=== PATIENT | female | born 1970 | race Caucasian/White ===

== ENCOUNTER 2017-10-03 22:52 | Inpatient (IN) | payer OTHER ==
[~2017-10-03] VITALS: Ht 170.2 cm; Wt 117.5 kg
[2017-10-03 23:22] LABS: ABSOLUTE BASOPHIL COUNT 0.1 /CUMM (0.0-0.2); ABSOLUTE EOSINOPHIL COUNT 0.4 /CUMM (0.0-0.7); ABSOLUTE GRANULOCYTE CT 4.1 /CUMM (1.4-6.5); ABSOLUTE LYMPH COUNT 2.7 /CUMM (1.2-3.4); BASOPHIL % 1.2 % (0.0-2.0); GRANULOCYTE % 49.6 % (42.2-75.2); HEMATOCRIT 39.6 % (37-47); MEAN CORPUSCULAR HGB 29.4 PG (27.0-31.0); MEAN CORPUSCULAR VOLUME 86.6 FL (81.0-99.0); MEAN PLATELET VOLUME 8.1 FL (7.4-10.4); PLATELET COUNT 377 /CUMM (130-400); RBC DISTRIBUTION WIDTH 12.9 % (11.5-14.5); RED BLOOD CELL CT 4.57 /CUMM (4.20-5.40); WHITE BLOOD CELL COUNT 8.3 /CUMM (4.8-10.8)
--- NOTE | 2017-10-03 23:56 | ED PSYCHIATRIC COMPLAINT ---
See Addendum History of Present Illness General Chief Complaint: Psychiatric Related Complaint Stated Complaint: +SI Source: patient Exam Limitations: no limitations Vital Signs & Intake/Output Vital Signs & Intake/Output Vital Signs Date Time Temp Pulse Resp B/P B/P Pulse O2 O2 Flow FiO2 Mean Ox Delivery Rate 10/05 0752 97.8 73 129/75 10/04 2227 97.1 84 136/85 10/04 2141 97.6 75 20 118/66 10/04 1910 97.8 84 18 153/73 98 Room Air ED Intake and Output 10/05 0000 10/04 1200 Intake Total Output Total Balance Patient 259 lb Weight Triage Note: PT TO ED FOR +SI THOUGHTS WITH A PLAN OF "OVERDOSING ON MY METOPROLOL" DENIES HI, DENIES ETOH/DRUGS. PMH OF ANXIETY, DEPRESSION AND PTST. SOBBING IN TRIAGE Triage Nurses Notes Reviewed? yes Onset: Abrupt Duration: day(s): Timing: recent history : No Patient currently breastfeeds: No HPI: 10/04/17 1:23 AM 47-year-old female who presents to the emergency department complaining of depression with suicidal ideation. The patient states she's having thoughts of hurting herself. She has a past medical history of depression and suicidal ideation in the past. She denies any alcohol or drug use. (Carlton Obrien DO) Allergies Coded Allergies: banana (Intermediate, RASH 10/04/17) Reconcile Medications Albuterol Sulfate (Proair Hfa) 90 MCG HFA.AER.AD 2 PUF INH Q4-6 PRN PRN SHORTNESS OF BREATH (Reported) Bupropion HCl (Wellbutrin XL) 150 MG TAB.ER.24H 3 TAB PO DAILY MENTAL HEALTH (Reported) Clonazepam (Klonopin) 0.5 MG TABLET 1 TAB PO BID MENTAL HEALTH (Reported) Esomeprazole (Nexium) 40 MG CAPSULE.DR 1 CAP PO DAILY GI (Reported) Fluticasone Propionate (Flonase Allergy Relief) 50 MCG/ACTUATION SPRAY.SUSP 2 SPRAY DAR DAILY ALLERGIES (Reported) Liothyronine Sodium (Cytomel) 25 MCG TABLET 1 TAB PO QPM UNKNOWN (Reported) Metoprolol Succinate 100 MG TAB.ER.24H 1 TAB PO QPM HEART (Reported) Trazodone HCl 150 MG TABLET 1 TAB PO QPM SLEEP (Reported) Venlafaxine HCl (Effexor XR) 150 MG CAP.ER.24H 2 CAP PO DAILY MENTAL HEALTH ( Reported) Venlafaxine HCl (Effexor XR) 75 MG CAP.ER.24H 1 CAP PO DAILY MENTAL HEALTH ( Reported) (Corwin HUDSON,Roger) Past History Travel History Traveled to [place] past 21 day No Medical History Any Pertinent Medical History? see below for history Cardiovascular: hypertension Gastrointestinal: GERD Psychiatric: anxiety, depression, PTSD Surgical History Surgical History: non-contributory Psychosocial History What is your primary language [place] Citizen Tobacco Use: Never used ETOH Use: denies use Illicit Drug Use: denies illicit drug use Family History Hx Contributory? No (Carlton Obrien DO) Review of Systems Review of Systems Constitutional: Reports: no symptoms. EENTM: Reports: no symptoms. Respiratory: Reports: no symptoms. Cardiovascular: Reports: no symptoms. GI: Reports: no symptoms. Genitourinary: Reports: no symptoms. Musculoskeletal: Reports: no symptoms. Skin: Reports: no symptoms. Neurological/Psychological: Reports: depressed. Hematologic/Endocrine: Reports: no symptoms. Immunologic/Allergic: Reports: no symptoms. (Carlton Obrien DO) Physical Exam Physical Exam General Appearance: well developed/nourished, alert, awake, anxious, moderate distress Head: atraumatic, normal appearance Eyes: Bilateral: PERRL, EOMI, other (conjunctival injection). Ears, Nose, Throat: normal pharynx, normal ENT inspection Neck: normal inspection, supple, full range of motion Respiratory: normal breath sounds, chest non-tender, no respiratory distress Cardiovascular: regular rate/rhythm Gastrointestinal: soft, non-tender Extremities: normal range of motion Neurological/Psychiatric: no motor/sensory deficits, awake, agitated, alert Appearance/Memory/Insight: disheveled Behavoir/Eye Contact/Speech: cooperative Thoughts/Hallucinations: no apparent hallucination Skin: intact, normal color, warm/dry SAD PERSONS SAD PERSONS Response Value Age <19 or >45 years? yes 1 Depression/Hopelessness? yes 2 Previous Attempts/Psych Care yes 1 Single//? yes 1 Social Support? has no support 1 Total 6 SAD PERSONS Done? yes (Carlton Obrien DO) Progress Differential Diagnosis: drug intoxication, drug overdose, drug withdrawal, depression Plan of Care: Orders Procedure Date/time Status Regular Diet 10/05 B Active Nursing Misc 10/05 UNK Active Weight 10/04 2237 Active Vital Signs 10/04 2225 Active Inpt Psych Teach/Educate 10/04 2225 Active Nutritional Intake, Monitor 10/04 2225 Active Inpt Psych Auricular Acupunctu 10/04 2225 Active Lab Add-on Test 10/04 2034 Active Patient Data - inpatient psych 10/05 2027 Active Admit to inpatient psych 10/05 2027 Active Intake & Output 10/04 0332 Complete Vital Signs 10/04 UNK Complete Nursing Misc 10/04 UNK Complete Alternative Nursing Therapy 10/04 UNK Complete Activity/Ambulation 10/04 UNK Complete TSH REFLEX 10/03 230 Complete Current Medications Sig/Sparkle Start time Last Medication Dose Stop Time Status Admin Venlafaxine HCl 375 MG 0800 10/05 0830 AC 10/05 (Effexor Xr) 08 Acetaminophen 650 MG Q6P PRN 10/04 2100 AC (Tylenol) Al Hydroxide/Mg 30 ML Q4-6 PRN PRN 10/04 2100 AC Hydroxide (Maalox Plus) Liothyronine Sodium 25 MCG AT BEDTIME 10/04 2100 AC (Cytomel 25 Mcg) Magnesium Hydroxide 30 ML AT BEDTIME PRN 10/04 2100 AC (Milk Of Magnesia) Metoprolol Succinate 100 MG QPM 10/04 2100 AC 10/04 (Toprol Xl) 2141 Trazodone HCl 150 MG QPM 10/04 2100 AC 10/04 (Desyrel) 2141 Benztropine Mesylate 1 MG Q6P PRN 10/04 2044 AC (Cogentin 1 MG Tablet) Benztropine Mesylate 1 MG Q6P PRN 10/04 204 AC (Cogentin) Gabapentin 300 MG Q6P PRN 10/04 2044 AC (Neurontin) Haloperidol 5 MG Q6P PRN 10/04 2044 AC (Haldol) Haloperidol 5 MG Q6P PRN 10/04 2044 AC (Haldol) Lorazepam 2 MG Q6P PRN 10/04 2044 AC (Ativan) Albuterol Sulfate 2 PUF Q4-6 PRN PRN 10/04 1315 AC (Ventolin) Fluticasone 2 SPRAY DAILY 10/04 1304 AC 10/05 Propionate 0829 (Flonase) Omeprazole 40 MG DAILY AC 10/04 1304 AC 10/05 (Prilosec) 0613 Bupropion HCl 450 MG DAILY 10/04 1303 AC 10/05 (Wellbutrin XL) 0829 Clonazepam 0.5 MG BID 10/04 1303 AC 10/05 (KlonoPIN) 10/11 1302 0831 Initial ED EKG: none (Carlton Obrien DO) Hand-Off Endorsed To: Scott HUDSON,Tony Martinez Endorsed Time: 1899 Pending: consult, other (bed search) (Roger Olivia MD) Departure Departure Disposition: STILL A PATIENT Condition: Stable Clinical Impression Primary Impression: Depression Referrals: Celia Stanton APRN (PCP/Family) Departure Forms: Customer Survey General Discharge Information Comments 10/04/17 This 5:52 AM The patient is pending evaluation by crisis. She will be signed out to Dr. Olivia at 7 am (Carlton Obrien DO) PA/INSURANCE DEFENSE ATTORNEY Co-Sign Statement Statement: ED Attending supervision documentation- [] I saw and evaluated the patient. I have also reviewed all the pertinent lab results and diagnostic results. I agree with the findings and the plan of care as documented in the PA's/INSURANCE DEFENSE ATTORNEY's documentation. [] I have reviewed the ED Record and agree with the PA's/INSURANCE DEFENSE ATTORNEY's documentation. [] Additions or exceptions (if any) to the PAs/INSURANCE DEFENSE ATTORNEY's note and plan are summarized below: [] (Roger Olivia MD) Departure Comments pt signed out to me by dr. olivia at 10/04/17, 7pm pt signed out to dr. myers, 10/05/17, 7am. (Tony Chavez MD) Psych Admission Note Psychiatric Admission: I have seen and evaluated ROMINA CHI. I have also reviewed all the pertinent lab results and diagnostic results. ROMINA CHI will be admitted to our inpatient Psychiatric unit for treatment and care. (Luke HUDSON,Dc Alex) [] I saw and evaluated the patient. I have also reviewed all the pertinent lab results and diagnostic results. I agree with the findings and the plan of care as documented in the PA's/INSURANCE DEFENSE ATTORNEY's documentation. [] I have reviewed the ED Record and agree with the PA's/INSURANCE DEFENSE ATTORNEY's documentation. [] Additions or exceptions (if any) to the PAs/INSURANCE DEFENSE ATTORNEY's note and plan are summarized below: [] (Corwin HUDSON,Roger) Departure Comments pt signed out to me by dr. olivia at 10/04/17, 7pm pt signed out to dr. myers, 10/05/17, 7am. (Scott HUDSON,Tony Martinez)
[2017-10-04] MEDS ORDERED: EFFEXOR XR150 M1 PO (12:56)
[2017-10-04] MEDS ORDERED: EFFEXOR XR75 M1 PO (12:56)
[2017-10-04] MEDS ORDERED: WELLBUTRIN XL150 M2 PO (12:57)
[2017-10-04] MEDS ORDERED: KLONOPIN0.5 M1 PO (12:57)
[2017-10-04] MEDS ORDERED: NEXIUM40 M1 PO (12:57)
[2017-10-04] MEDS ORDERED: TRAZODONE HCL150 M1 PO (12:57)
[2017-10-04] MEDS ORDERED: CYTOMEL25 MC1 PO (12:58)
[2017-10-04] MEDS ORDERED: METOPROLOL SUC100 M2 PO (12:59)
[2017-10-04] MEDS ORDERED: PROAIR HFA8.5 GM INH (13:01)
[2017-10-04] MEDS ORDERED: FLONASE ALLERG9.9 ML NAS (13:01)
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
[2017-10-04 22:27] VITALS: BP 136/85
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
[2017-10-05 07:52] VITALS: BP 129/75
--- NOTE | 2017-10-05 13:36 | History & Physical ---
General Information and HPI MD Statement: I have seen and personally examined ROMINA CHI and documented this H&P. The patient is a 47 year old F who presented with a patient stated chief complaint of "a lot is going on"]. Source of Information: patient, old records Exam Limitations: unable to give history History of Present Illness: 47-year-old female came in with suicidal ideations with plan to overdose on her metoprolol. Patient has history of anxiety depression and PTSD. Denies any alcohol or drug use. For the last week has had suicidal thoughts. For all those reasons she is admitted for evaluation and treatment. Allergies/Medications Allergies: Coded Allergies: banana (Intermediate, RASH 10/04/17) Home Med list Albuterol Sulfate (Proair Hfa) 90 MCG HFA.AER.AD 2 PUF INH Q4-6 PRN PRN SHORTNESS OF BREATH (Reported) Bupropion HCl (Wellbutrin XL) 150 MG TAB.ER.24H 3 TAB PO DAILY MENTAL HEALTH (Reported) Clonazepam (Klonopin) 0.5 MG TABLET 1 TAB PO BID MENTAL HEALTH (Reported) Esomeprazole (Nexium) 40 MG CAPSULE.DR 1 CAP PO DAILY GI (Reported) Fluticasone Propionate (Flonase Allergy Relief) 50 MCG/ACTUATION SPRAY.SUSP 2 SPRAY DAR DAILY ALLERGIES (Reported) Liothyronine Sodium (Cytomel) 25 MCG TABLET 1 TAB PO QPM UNKNOWN (Reported) Metoprolol Succinate 100 MG TAB.ER.24H 1 TAB PO QPM HEART (Reported) Trazodone HCl 150 MG TABLET 1 TAB PO QPM SLEEP (Reported) Venlafaxine HCl (Effexor XR) 150 MG CAP.ER.24H 2 CAP PO DAILY MENTAL HEALTH ( Reported) Venlafaxine HCl (Effexor XR) 75 MG CAP.ER.24H 1 CAP PO DAILY MENTAL HEALTH ( Reported) Compliance With Home Meds: UNKNOWN Past History Travel History Traveled to [place] past 21 day No Medical History Neurological: migraine EENT: allergies, sinusitis Cardiovascular: hypertension Respiratory: bronchitis Gastrointestinal: GERD Musculoskeletal: fracture Psychiatric: anxiety, depression, PTSD Blood Disorders: anemia ORGAN TUNER/Reproductive: yeast infections, POLYCYSTIC OVARIES Isolation History: Standard Surgical History Surgical History: non-contributory Past Family/Social History Psychosocial History ETOH Use: denies use Illicit Drug Use: denies illicit drug use Review of Systems Review of Systems Constitutional: Reports: see HPI. Exam & Diagnostic Data Last 24 Hrs of Vital Signs/I&O Vital Signs Date Time Temp Pulse Resp B/P B/P Pulse O2 O2 Flow FiO2 Mean Ox Delivery Rate 10/05 0752 97.8 73 129/75 10/04 2227 97.1 84 136/85 10/04 2141 97.6 75 20 118/66 10/04 1910 97.8 84 18 153/73 98 Room Air 10/04 1447 97.9 72 18 122/70 97 Room Air Intake & Output 10/05 1600 10/05 0800 10/05 0000 Intake Total Output Total Balance Patient 259 lb Weight Physical Exam General Appearance Alert, Oriented X3, Cooperative, No Acute Distress Skin No Rashes, No Breakdown HEENT PERRLA, EOMI, Mucous Membr. moist/pink Neck Supple, No JVD, No thryomegaly, +2 Carotid Pulse wo Bruit Lymphatic Axillary nl, Cervical nl Cardiovascular Regular Rate, No Murmurs Lungs Clear to Auscultation, Normal Air Movement Abdomen Soft, No Tenderness, No Hepatospenomegaly Neurological Exam Findings: Normal Gait, Normal Speech, Strength at 5/5 X4 Ext, Normal Tone, Sensation Intact, Cranial Nerves 3-12 NL, Reflexes 2+ Cranial Nerves II through XII: Intact. Extremities No Cyanosis, No Edema, Normal Pulses, No Tenderness/Swelling Vascular Normal Pulses, Pulses Symmetrical Assessment/Plan As Ranked By This Provider Problem List: 1. Depression Miscellaneous Miscellaneous Documentation Attending Case Discussed With: Tony Emmanuel MD Primary Care Physician: Celia Stanton APRN Patient sees these Specialists Psych. Level of Patient Care: Tavo Consults Needed: Consulting Specialty: Psychiatry Consulting Physician: Dr Emmanuel Reason for Consult: SI, depression Attending MD Review Statement Attending Statement Attending MD Statement: examined this patient
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
--- NOTE | 2017-10-05 18:52 | SOCIAL WORKER PROG NOTE PSYCH ---
Social Work Progress Note Progress Note This science writer met with patient. She discussed stressors leading to inpatient admission, particularly regarding her children. She stated that she fears "losing my kids" and has a court hearing on regarding custody. Patient stated that she went to [facility] with the intention to OD, however, did not have her pills with her as she forgot them. Patient stated that she has previously been in treatment with [facility] in [place] and individual therapy with a clinician, Charity Murray. She stated that she does not currently have a place to live and that her sister has invited her to stay with her in [place]. She stated that they are "oil and water" and her sister expects her to pay "in romero" if she were to stay there. She was previously living with her brother in [place], but states that she cannot return. Patient is agreeable to IOP in addition to individual therapy. She denied current SI and denied HI/AH/VH. "I'm pretty anxious." Patient stated that she will speak with her sister about a family meeting when they talk tonight. Patient denied any substance use.
[2017-10-05 20:07] VITALS: BP 147/90
[2017-10-06 08:23] VITALS: BP 116/74
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
--- NOTE | 2017-10-06 14:06 | CP SOUTH PROGRESS NOTE PSYCH ---
Psych (Inpt) Progress Note Progress Note Include the following elements, when applicable: Involvement in the active treatment of the patient with behavioral observations of the patient and the patient's response to the treatment. Review of the ongoing treatment process in the context of the treatment plan. Indication of how multi-disciplinary staff members are carrying out the treatment plan. Plans for future interventions and recommendations for revision of the treatment plan. Liaison with other physicians/providers. Progress Note: Case and treatment plan discussed in team meeting. Staff reports that the patient is denying suicidal ideation. Positive. Had unemployment hearing at 9: 30 AM. Patient seen at 12:04 PM with Leonard Cartagena LPC. Patient reports she had an unemployment hearing today by phone for both cases but she does not think that the hearing went well. Affect is calm and blunted to euthymic. Mood is anxious at 10/10 and a little bit down at 6/10. She is jiggling her right leg. Feels hopeless, helpless and worthless. Feels guilty for leaving her kids with their dad. Denies active suicidal ideation. When asked about passive suicidal ideation, she responded "I don't know." Then went on to say "part of me says yes, part of me says no." Gives a safety promise for here. Denies homicidal ideation. Denies auditory and visual hallucinations and paranoid ideation. Reports she slept okay last night. Appetite is good. Reports energy is a little better than it was yesterday. She still feels kind of drained. Reports the winds are out of her sail. States she is on Cytomel for PMS, prescribed by a psychiatrist in [place]. Denies thyroid disease. Major risks and benefits of lithium carbonate to augment antidepressant were reviewed with the patient, including risks of thyroid damage, kidney damage and cardiac conduction problems. She was advised to avoid drugs, alcohol and while on this medication. She was advised of signs and symptoms of lithium toxicity. Pre- lithium EKG (computer reading) returned normal. IMPRESSION: Slow progress. Continue present treatment plan. Housing remains problematic. Patient will inquire as to whether her sister will take her in. Anticipate possible discharge on Wednesday. We will be checking a lithium level on Wednesday morning, but it will not be at steady-state. Continue Effexor XR and Wellbutrin XL as written.
--- NOTE | 2017-10-06 17:30 | SOCIAL WORKER PROG NOTE PSYCH ---
Social Work Progress Note Progress Note This commercial lines underwriter met with patient. This commercial lines underwriter had assisted the patient in calling the unemployment office earlier today regarding her hearing. She was able to complete the hearing by phone at 9:30am. Regarding the hearing, patient stated, "I don't have a good feeling" and expects to receive a determination letter in the mail. She stated that she would be able to appeal the decision if she is not granted unemployment benefits. Patient stated that she has a custody hearing scheduled with court tomorrow. Patient signed KENNY's for [facility], [facility] (for [facility]) and her sister. She is currently engaged in services with [facility] and Ilana Chaparro was informed by phone ([phone]) at 2:41pm. Patient reported, "I'm feeling really down - overwhelmed." We discussed strategies to manage these feelings, to which she identified distraction through going to groups, talking to staff and avoiding isolation.
[2017-10-06 19:58] VITALS: BP 140/81
[2017-10-07 07:37] VITALS: BP 138/74
--- NOTE | 2017-10-07 11:34 | SOCIAL WORKER PROG NOTE PSYCH ---
Social Work Progress Note Progress Note ROMINA CHI [id number] 1970 ROMINA CHI [id number] Pended Authorization # Client Authorization # Type of Request [id number] CONCURRENT Date of Admission/ Start of Services Requested From Submission Date 10/04/2017 10/07/2017 10/07/2017 Level of Service Type of Service Level of Care Type of Care INPATIENT/OC MENTAL HEALTH INPATIENT INPATIENT HOSPITAL - INPATIENT HOSPITAL
--- NOTE | 2017-10-07 15:44 | CP SOUTH PROGRESS NOTE PSYCH ---
Psych (Inpt) Progress Note Progress Note Include the following elements, when applicable: Involvement in the active treatment of the patient with behavioral observations of the patient and the patient's response to the treatment. Review of the ongoing treatment process in the context of the treatment plan. Indication of how multi-disciplinary staff members are carrying out the treatment plan. Plans for future interventions and recommendations for revision of the treatment plan. Liaison with other physicians/providers. Progress Note: Case and treatment plan discussed in team meeting. Staff reports that the patient is denying suicidal ideation. Experiencing some anxiety. Patient seen at 10:39 AM. She was napping in bed but got up and met with me in office. She is dressed in blue scrubs. States she talked to her sister yesterday and sister told patient that patient can stay with sister but patient' s children cannot. Apparently patient's sister feels that the patient's children upset the patient's 20-year-old autistic nephew. Patient's affect is calm and depressed. Mood is "kind of flat." Rates sad mood 7/10 and anxiety about 5/10. Denies feeling hopeless. Does feel helpless and worthless. Feels guilty regarding her children and leaving them behind. Denies active and passive suicidal ideation. Denies homicidal ideation. Denies auditory and visual hallucinations and paranoid ideation. States she slept like crap last night related to phone call. Appetite is okay. Energy is very low today. Tolerating medications well. She feels that she has a flattened affect on lithium but she believes that is better than crying as she was yesterday. IMPRESSION: Slow progress. Continue present treatment plan. We will check a lithium level tomorrow although it will not be at steady-state. Anticipate likely discharge tomorrow with referral to an IOP in [place] and with plan for patient to stay at sister's home, at least temporarily.
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
[2017-10-07 20:15] VITALS: BP 140/84
[2017-10-08 08:27] VITALS: BP 122/78
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
[2017-10-08] MEDS ORDERED: LITHIUM CARBON300 M4 PO (10:49)
[2017-10-08] MEDS ORDERED: MICONAZOLE NIT100 MG VAG (10:49)
--- NOTE | 2017-10-08 10:56 | Patient Discharge Instructions ---
Psych Discharge Inst General Discharge Information Reason for Admission: Considered overdosing at [facility]. Psy Discharge Primary Diag+ Unspecified depression Psy Discharge Secondary Diag+ Unspecified anxiety PTSD Hypertension GERD Yeast vaginitis Summary Tests/Major Procedures Lab ALT 60 U/L H 10/03/17 2305 AST 34 U/L 10/03/17 2305 BUN 14 mg/dL 10/03/17 2305 Calcium 9.0 mg/dL 10/03/17 2305 Carbon Dioxide 27 mmol/L 10/03/17 2305 Chloride 101 mmol/L 10/03/17 2305 Creatinine 1.0 mg/dL 10/03/17 2305 Estimated GFR 60 ml/min 10/03/17 2305 Glucose 88 mg/dL 10/03/17 2305 Potassium 3.9 mmol/L 10/03/17 2305 Sodium 137 mmol/L 10/03/17 2305 TSH &T3 &Free T4 Intrp 2.770 uIU/mL 10/03/17 2305 Absolute Monocytes 1.0 /CUMM H 10/03/17 2305 Hct 39.6 % 10/03/17 2305 Hgb 13.4 G/DL 10/03/17 2305 Monocytes % 12.0 % H 10/03/17 2305 Plt Count 377 /CUMM 10/03/17 2305 WBC 8.3 /CUMM 10/03/17 2305 Timblin 0.3 mmol/L L 10/08/17 0645 Serum Alcohol < 10.0 MG/DL 10/03/17 2305 Ur Epithelial Cells FEW 10/03/17 2326 Ur Leukocyte Esterase NEG 10/03/17 2326 Urine Bacteria RARE H 10/03/17 2326 Urine Hemoglobin TRACE-INTACT 10/03/17 2326 Urine Mucus MANY H 10/03/17 2326 Urine Nitrite NEG 10/03/17 2326 Urine Test NEGATIVE 10/03/17 2326 Urine RBC 3-5 /HPF 10/03/17 2326 Urine WBC RARE /HPF 10/03/17 2326 EKG 10/06/17 showed sinus rhythm @ 72, normal ECG, QT 424, QTc 465. Studies Pending at [place]: None. Patient Instructions Contact Information Your Psychiatrist on [facility] was Tony Emmanuel MD * If you are experiencing an emergency related to this hospitalization, please call [phone] to contact the treating psychiatrist or the psychiatrist-on- call. * To Request a copy of your medical records, please contact the Medical Records Department at [phone]. * To request results of studies pending at the time of discharge, please call [phone]. * Continue your Medications until directed to stop by your Healthcare provider. General Medication Information Please continue to take your new medications and your continued home medications , unless otherwise indicated on your discharge medication list, or unless directed by your MD or WATER RESTORATION TECHNICIAN to stop them. Special Instructions Diet Regular Activity Normal Other Inst/Recommendations Please see PCP for high ALT and for follow up of yeast infection. - Tobacco Use Treatment Offered Post DC Medications Offered: Not Applicable Post DC Tobacco Treatment Plan: Not Applicable - EtOH/Drug Use D/O Treatment Offered Post DC Medications Offered: NA-No EtOH/Drug Use D/O Post DC EtOH/SubAbuse [place] Plan: NA-No EtOH/Drug Use D/O Metabolic Screening ([x]) Not Applicable, patient not on a neuroleptic. OR () Patient on a neuroleptic(s) . Enter below results for Hemoglobin A1C, and lipid panel if obtained during the last 365 days. BMI: Blood Pressure: 122/78 Laboratory Results From [place] EHR (If applicable): Advance Directives Does the Patient have Medical Advance Directives No/Refused further info Does Pt have Psychiatric Advance Directives? No/Refused further info Does Patient have a Designated Surrogate Decision Maker: No Information About Psychiatric Advance Directives Provided? Refused Discharge Plan Post Hospital Treatment Plan: Living with sister. [place] IOP 10/14/17. Please have lithium levels monitored.
--- NOTE | 2017-10-08 17:57 | SOCIAL WORKER PROG NOTE PSYCH ---
Social Work Progress Note Progress Note This freelance copywriter met with patient. She stated that she felt safe discharging today. She denied SI/HI/AH/VH. She plans to stay with her sister, but find activities that she can engage in outside of the house. 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 She identified a safety plan to "call 211, call mobile crisis, go to the or [facility] ER, call Arabella (friend), call my brother Adolph." She also accepted the crisis and warm line numbers upon discharge. She stated that she will follow up with [facility] upon discharge. Patient stated that her brother, with whom she stayed prior to admission, has her medications and will coordiante with him to obtain them. She accepted the intake appointment with [facility]. Patient was informed of this freelance copywriter's call with [facility] this morning. She confirmed that she has the Careline number should she ever feel the need to use it. Faxed Referral(s) Referred To: [facility] Transition of Care Documents sent: Health Summary Faxed to: [facility], attn: Cece Fax #: [phone] Faxed by: Chelsea Duran LCSW Date faxed: 10/08/17 Time Faxed: [phone]
--- NOTE | 2017-10-08 18:02 | CP SOUTH PROGRESS NOTE PSYCH ---
Psych (Inpt) Progress Note Progress Note Include the following elements, when applicable: Involvement in the active treatment of the patient with behavioral observations of the patient and the patient's response to the treatment. Review of the ongoing treatment process in the context of the treatment plan. Indication of how multi-disciplinary staff members are carrying out the treatment plan. Plans for future interventions and recommendations for revision of the treatment plan. Liaison with other physicians/providers. Progress Note: Case and treatment plan discussed in team meeting. Staff reports that the patient is denying suicidal ideation. Appearing anxious. Had a bad phone call last evening. Apparently ex- won custody case in court yesterday. Lab [place] 0.3 mmol/L L 10/08/17 0645 Patient seen at 10:15 AM. She is jiggling both legs. Feels anxious about getting discharged today and going to her sister's house. Affect is anxious. Rates anxiety /10 and sad mood 6/10. Feels hopeless and helpless but not worthless or guilty. Denies active and passive suicidal ideation. Reports that she talked to her kids yesterday and that gave her a little bit of hope. Reports ex- was granted full custody of the children yesterday. Denies homicidal ideation. Denies auditory and visual hallucinations and paranoid ideation. Reports sleep was "okay, surprisingly." Reports appetite is good. Energy: feeling a little tired today. Patient is not interested in a lithium dose increase at this time. Patient plans to live with her sister and attend [facility]. She has some reluctance about living with her sister but she feels safe for discharge. IMPRESSION: Condition improved. Okay for discharge today with plan as above.
--- NOTE | 2017-10-08 18:08 | DISCHARGE SUMMARY REPORT-PSYCH ---
Visit Information Visit Dates/Diagnosis' Admission Date: 10/04/17 Discharge Date: 10/08/17 Reason for Admission: Considered overdosing at [facility]. Psy Discharge Primary Diag: Unspecified depression Psy Discharge Secondary Diag: Unspecified anxiety PTSD Hypertension GERD Yeast vaginitis Hospital Course Significant Lab Findings: Lab ALT 60 U/L H 10/03/17 2305 AST 34 U/L 10/03/17 2305 BUN 14 mg/dL 10/03/17 2305 Calcium 9.0 mg/dL 10/03/17 2305 Carbon Dioxide 27 mmol/L 10/03/17 2305 Chloride 101 mmol/L 10/03/17 2305 Creatinine 1.0 mg/dL 10/03/17 2305 Estimated GFR 60 ml/min 10/03/17 2305 Glucose 88 mg/dL 10/03/17 2305 Potassium 3.9 mmol/L 10/03/17 2305 Sodium 137 mmol/L 10/03/17 2305 TSH &T3 &Free T4 Intrp 2.770 uIU/mL 10/03/17 2305 Absolute Monocytes 1.0 /CUMM H 10/03/17 2305 Hct 39.6 % 10/03/17 2305 Hgb 13.4 G/DL 10/03/17 2305 Monocytes % 12.0 % H 10/03/17 2305 Plt Count 377 /CUMM 10/03/17 2305 WBC 8.3 /CUMM 10/03/17 2305 [place] 0.3 mmol/L L 10/08/17 0645 Serum Alcohol < 10.0 MG/DL 10/03/17 2305 Ur Epithelial Cells FEW 10/03/17 2326 Ur Leukocyte Esterase NEG 10/03/17 2326 Urine Bacteria RARE H 10/03/17 2326 Urine Hemoglobin TRACE-INTACT 10/03/17 2326 Urine Mucus MANY H 10/03/17 2326 Urine Nitrite NEG 10/03/17 2326 Urine Test NEGATIVE 10/03/17 2326 Urine RBC 3-5 /HPF 10/03/17 2326 Urine WBC RARE /HPF 10/03/17 2326 EKG 10/06/17 showed sinus rhythm @ 72, normal ECG, QT 424, QTc 465. Course Complications: None. Consultations: The patient was seen by Dr. Anurag Thorpe for admission history and physical. Please refer to his note for additional information Allergies: Coded Allergies: banana (Intermediate, RASH 10/04/17) Hospital Course/TX Response: The patient was monitored on the unit for safety and mood disturbance. She participated in multimodal treatments on the unit. Home medications were continued. [place] was added for augmentation. Patient felt that her mood and affect leveled out a bit with the addition of lithium. Suicidal ideation has remitted. Progress note from date of discharge, 10/08/17: "Case and treatment plan discussed in team meeting. Staff reports that the patient is denying suicidal ideation. Appearing anxious. Had a bad phone call last evening. Apparently ex- won custody case in court yesterday. Lab [place] 0.3 mmol/L L 10/08/17 0645 Patient seen at 10:15 AM. She is jiggling both legs. Feels anxious about getting discharged today and going to her sister's house. Affect is anxious. Rates anxiety 10/10 and sad mood 6/10. Feels hopeless and helpless but not worthless or guilty. Denies active and passive suicidal ideation. Reports that she talked to her kids yesterday and that gave her a little bit of hope. Reports ex- was granted full custody of the children yesterday. Denies homicidal ideation. Denies auditory and visual hallucinations and paranoid ideation. Reports sleep was "okay, surprisingly." Reports appetite is good. Energy: feeling a little tired today. Patient is not interested in a lithium dose increase at this time. Patient plans to live with her sister and attend [facility]. She has some reluctance about living with her sister but she feels safe for discharge. IMPRESSION: Condition improved. Okay for discharge today with plan as above." Discharge HBIPS - Tobacco Use Treatment Offered Post DC Medications Offered: Not Applicable Post DC Tobacco Treatment Plan: Not Applicable - EtOH/Drug Use D/O Treatment Offered Post DC Medications Offered: NA-No EtOH/Drug Use D/O Post DC EtOH/SubAbuse [place] Plan: NA-No EtOH/Drug Use D/O Metabolic Screening - Screen if on a Neuroleptic Medication - Metabolic screening should include: - Blood Pressure, BMI, Glucose or Hgb A1c, & a - Lipid profile from within the past 365 days. Metabolic Screening ([x]) Not Applicable, patient not on a neuroleptic. OR () Patient on a neuroleptic(s) . Enter below results for Hemoglobin A1C, and lipid panel if obtained during the last 365 days. BMI: Blood Pressure: 122/78 Laboratory Results From [facility] EHR (If applicable): Discharge Instructions General Discharge Information Multiple Neuroleptics: ([x]) Not Applicable OR Document below three failed attempts at monotherapy, or a plan to taper to monotherapy, or augmentation of Clozapine. () Discharge Diet Regular Discharge Activity Normal DC Disposition: Will live with sister and attend [facility]'s IOP. Referrals Ordered Referrals Provider Referral 10/14/17 For Providers: [[facility]] For Groups: [Intensive Outpatient] [facility] IOP 1st Floor, [address] [facility], [place] [phone] IOP Intake appointment: 10/14/17 at 9:00am with Zarina Devries LCSW Provider Referral For Providers: [[facility]] [facility] Ilana Chaparro RN [phone] Prescriptions Continue taking these medications: Venlafaxine HCl (Effexor XR) 150 MG CAP.ER.24H 2 Capsule ORAL DAILY Comments: Last Taken:10/08/17 Time:9am Venlafaxine HCl (Effexor XR) 75 MG CAP.ER.24H 1 Capsule ORAL DAILY Comments: Last Taken:10/08/17 Time:9am Bupropion HCl (Wellbutrin XL) 150 MG TAB.ER.24H 3 Tablet ORAL DAILY Comments: Last Taken:10/08/17 Time:9am Esomeprazole (Nexium) 40 MG CAPSULE.DR 1 Capsule ORAL DAILY Comments: Last Taken:10/08/17 Time:9am PRILOSEC SUBSTITUTED IN HOSPITAL Clonazepam (Klonopin) 0.5 MG TABLET 1 Tablet ORAL TWICE DAILY Comments: Last Taken:10/08/17 Time:9am Trazodone HCl (Trazodone HCl) 150 MG TABLET 1 Tablet ORAL Every night Comments: Last Taken:10/07/17 Time:10pm Liothyronine Sodium (Cytomel) 25 MCG TABLET 1 Tablet ORAL Every night Comments: Last Taken:10/07/17 Time:10pm Metoprolol Succinate (Metoprolol Succinate) 100 MG TAB.ER.24H 1 Tablet ORAL Every night Comments: Last Taken:10/08/17 Time:9am Fluticasone Propionate (Flonase Allergy Relief) 50 MCG/ACTUATION SPRAY.SUSP 2 [place] In the nose DAILY Comments: Last Taken:10/08/17 Time:9am Albuterol Sulfate (Proair Hfa) 90 MCG HFA.AER.AD 2 Puff Inhale through mouth EVERY 4-6 HOURS NEEDED as needed for SHORTNESS OF BREATH Comments: NOT TAKEN IN HOSPITAL Start taking the following new medications: [place] Carbonate ([place] Carbonate) 300 MG CAPSULE 1 Capsule ORAL 08,1999 Qty = 28 No Refills Comments: Last Taken:10/08/17 Time:11am Miconazole Nitrate (Miconazole Nitrate) 100 MG SUPP.VAG 1 Suppository VAGINALLY AT BEDTIME Qty = 4 No Refills Comments: Last Taken:10/07/17 Time:10pm Other Inst/Recommendations Please see PCP for high ALT and for follow up of yeast infection. Studies Pending at Discharge None. Copies To: Zarina Devries LCSW
--- NOTE | 2017-10-11 16:53 | SOCIAL WORKER PROG NOTE PSYCH ---
Social Work Progress Note Progress Note [facility] discharge clinical entered Determination Status: DISCHARGE COMPLETED Thank you. You have completed your discharge for this episode of care. Member Name Member ID Member Subscriber Name Subscriber ID ROMINA CHI [id number] ROMINA ALON [id number] Related Authorization # Related Client Authorization # Discharge # Discharge Date [id number] [id number] 10/08/2017 Level of Service Type of Service Level Of Care Type of Care IP - INPATIENT/HLOC P - Mental Health I - Inpatient [facility] - Inpatient [facility] - [facility]
== END 2017-10-08 13:10 | DRG 754 ==
LOC: ERH 22:52 → ERHI 10-04 20:28 → CP SOUTH 10-04 20:28
PROVIDERS: Physician Assistant Medical
DX: F32.9 Major depressive disorder, single episode, unspecified (principal); F41.9 Anxiety disorder, unspecified; F43.10 Post-traumatic stress disorder, unspecified; I10 Essential (primary) hypertension; K21.9 Gastro-esophageal reflux disease without esophagitis; N76.0 Acute vaginitis; R45.851 Suicidal ideations; E28.2 Polycystic ovarian syndrome; Z91.018 Allergy to other foods; Z87.81 Personal history of (healed) traumatic fracture
CPT/HCPCS: 36415; 80307; 81001; 81025; 93005; 93010; G0463; G0480; J3490; J7508